=== PATIENT | female | born 1940 | race Caucasian/White ===

== ENCOUNTER → 2016-10-26 | Outpatient (CLI) | payer MEDICARE, OTHER ==
[~2016-10-26] MED LIST: DENO60DI SQ; EZET1TAB26 PO; FLUO15CR2 TP; LATA2.5D3 EACHEYE; LUTE6CAP3 PO; OXYC-302 PO; POLY17PO5 PO; calcium chew; multivitamin PO
== END | disposition home or self-care (01) ==
LOC: CFH 09:32
PROVIDERS: ATTEND Family Medicine
DX: Z13.820 Encounter for screening for osteoporosis (principal); M81.0 Age-related osteoporosis without current pathological fracture; N95.9 Unspecified menopausal and perimenopausal disorder
CPT/HCPCS: 77080